=== PATIENT | female | born 1965 ===

== ENCOUNTER 2016-07-22 13:00 | Emergency (ER) | payer SELFPAY ==
[2016-07-22 13:05] VITALS: BMI 28.3
[2016-07-22] MEDS ORDERED: DiphenhydrAMINE 50 mg/ml Inj IVP STA (13:07)
[2016-07-22] MEDS ORDERED: DiphenhydrAMINE 50 mg/ml Inj ONE (13:08)
[2016-07-22 13:24] VITALS: TEMP 97.8
--- NOTE | 2016-07-22 13:32 | ED PDOC ---
Arrival/HPI - General Chief Complaint: Allergic Reaction Time Seen by Provider: 07/22/16 13:06 Historian: Patient - History of Present Illness Narrative History of Present Illness (Text): 07/22/16 13:10 Sandy Alvarez is a 50 year old female, whose past medical history includes diabetes, hypertension, and hyperlipidemia, who presents to the emergency department complaining of a reaction to Niacin prior to arrival. Patient states that shortly prior to arrival she took Niacin 500 mg for the first time and shortly thereafter (within a few minutes), developed a flushing sensation. She then developing burning and itching sensation all over body and started feeling tightness in throat with shortness of breath. Patient denies any chest pain, abdomen pain, nausea, vomiting, diarrhea, or any other complaint at this time. PMD: None Time/Duration: Prior to Arrival Symptom Onset: Gradual Symptom Course: Unchanged Severity Level: Moderate Activities at Onset: Light Context: Home Past Medical History - Provider Review Nursing Documentation Reviewed: Yes - Infectious Disease Hx of Infectious Diseases: None - Tetanus Immunization Tetanus Immunization: Unknown - Past Medical History Past Medical History: Non-Contributing - Cardiac Hx Hypertension: Yes - Pulmonary Hx Respiratory Disorders: No - Neurological Hx Neurological Disorder: No - HEENT Hx HEENT Disorder: No - Renal Hx Renal Disorder: No - Endocrine/Metabolic Hx Diabetes Mellitus Type 2: Yes - Hematological/Oncological Hx Blood Disorders: No - Integumentary Hx Dermatological Disorder: No - Musculoskeletal/Rheumatological Hx Musculoskeletal Disorders: No Hx Falls: No - Gastrointestinal Hx Gastrointestinal Disorders: No - Genitourinary/Gynecological Hx Genitourinary Disorders: No - Psychiatric Hx Depression: Yes Hx Emotional Abuse: No Hx Physical Abuse: No Hx Sexual Abuse: No Hx Substance Use: No - Surgical History Hx Hysterectomy: Yes (partial) - Anesthesia Hx Anesthesia: Yes Hx Anesthesia Reactions: No Hx Malignant Hyperthermia: No - Suicidal Assessment Feels Threatened In Home Enviroment: No Family/Social History - Physician Review Nursing Documentation Reviewed: Yes Family/Social History: No Known Family HX Smoking Status: Never Smoked Hx Alcohol Use: No Hx Substance Use: No Hx Substance Use Treatment: No Allergies/Home Meds Allergies/Adverse Reactions: Allergies Penicillins Allergy (Verified 07/22/16 13:05) SHORTNESS OF BREATH Home Medications: Home Meds Medication Instructions Recorded Confirmed Lisinopril [Zestril] 40 mg PO DAILY 03/19/16 07/22/16 Metformin HCl [Fortamet] 1,000 mg PO DAILY 03/19/16 07/22/16 Review of Systems - Physician Review All systems were reviewed & negative as marked: Yes - Review of Systems Constitutional: Other (genreralized flushin and burning sensation). absent: Fevers, Night Sweats Eyes: absent: Vision Changes ENT: absent: Hearing Changes Respiratory: absent: SOB, Cough Cardiovascular: absent: Chest Pain Gastrointestinal: absent: Abdominal Pain Genitourinary Female: absent: Urine Output Changes Musculoskeletal: absent: Back Pain, Neck Pain Skin: Pruritis, Other (skin redness) Neurological: absent: Headache, Dizziness Endocrine: absent: Polyuria Hemo/Lymphatic: absent: Easy Bleeding Psychiatric: absent: Depression Physical Exam Vital Signs Temp Pulse Resp BP Pulse Ox 07/22/16 13:01 97.8 F 81 21 153/86 H 100 Temperature: Afebrile Blood Pressure: Hypertensive Pulse: Regular Respiratory Rate: Normal Appearance: Positive for: Other (Appears to be flushed) Pain Distress: None Mental Status: Positive for: Alert and Oriented X 3 - Systems Exam Head: Present: Atraumatic, Normocephalic Pupils: Present: PERRL Conjunctiva: Present: Normal Mouth: Present: Moist Mucous Membranes Pharnyx: Present: Normal. No: ERYTHEMA, EXUDATE, TONSILS ENLARGED, Peritonsilar Swelling, Uvular Deviation, Muffled/Hoarse Voice, Strider, Soft Palate/Uvular Edema Neck: Present: Normal Range of Motion Respiratory/Chest: Present: Clear to Auscultation, Good Air Exchange. No: Respiratory Distress, Accessory Muscle Use Cardiovascular: Present: Regular Rate and Rhythm, Normal S1, S2. No: Murmurs Abdomen: Present: Normal Bowel Sounds. No: Tenderness, Distention, Peritoneal Signs Back: Present: Normal Inspection Upper Extremity: Present: Normal Inspection. No: Cyanosis, Edema Lower Extremity: Present: Normal Inspection. No: Edema Neurological: Present: GCS=15, CN II-XII Intact, Speech Normal Skin: Present: Warm, Dry, Erythematous, Other (diffuse blanching erythema; itching and pruritus). No: Normal Color, Diaphoretic, Induration Psychiatric: Present: Alert, Oriented x 3, Normal Insight, Normal Concentration Medical Decision Making ED Course and Treatment: 07/22/16 13:10 Impression: 50 year old female complaining of an allergic reaction after taking Niacin 500 mg prior to arrival. Differential Diagnosis include but are not limited to: Allergic Reaction vs flushing due to niacin Plan: -- Decadron, Benadryl, and Pepcid -- Reassess and disposition Prior Visits: Notes and results from previous visits were reviewed. Patient last seen in ED on 03/19/16 for overdose. Patient was admitted to hospitalist care for further evaluation. Progress Notes: 07/22/16 13:51 Patient reports decrease burning sensation. Patient states that she no longer has any tightness in throat, but still feels itching in neck. 07/22/16 15:14 Patient with noted reaction to niacin as allergic vs exepcted flushing. Given respiratory and throat sensation; will treat as allergic. Given decadron and benadryl and pepcid and feeling much better with full resolution of symptoms. Patient will be dc on antihistamine and told to stop niacin. Ok for d/c. - Medication Orders Current Medication Orders: Discontinued Medications Dexamethasone (Decadron Inj) 10 mg IVP STAT STA Stop: 07/22/16 13:09 Last Admin: 07/22/16 13:17 Dose: 10 mg Diphenhydramine HCl (Benadryl) 25 mg IVP STAT STA Stop: 07/22/16 13:08 Last Admin: 07/22/16 13:14 Dose: 25 mg Diphenhydramine HCl (Benadryl) Confirm Administered Dose 50 mg .ROUTE .STK-MED ONE Stop: 07/22/16 13:09 Last Admin: 07/22/16 13:14 Dose: Famotidine (Pepcid) 20 mg IVP STAT STA Stop: 07/22/16 13:08 Last Admin: 07/22/16 13:15 Dose: 20 mg Famotidine (Pepcid) Confirm Administered Dose 20 mg .ROUTE .STK-MED ONE Stop: 07/22/16 13:09 Last Admin: 07/22/16 13:14 Dose: - Scribe Statement The provider has reviewed the documentation as recorded by the Arlene Ziegler Provider Scribe Attestation: All medical record entries made by the Kaiibjocleyn were at my direction and personally dictated by me. I have reviewed the chart and agree that the record accurately reflects my personal performance of the history, physical exam, medical decision making, and the department course for this patient. I have also personally directed, reviewed, and agree with the discharge instructions and disposition. Disposition/Present on Arrival - Present on Arrival Any Indicators Present on Arrival: No History of DVT/PE: No History of Uncontrolled Diabetes: No Urinary Catheter: No History of Decub. Ulcer: No History Surgical Site Infection Following: None - Disposition Have Diagnosis and Disposition been Completed?: Yes Diagnosis: Adverse reaction to niacin Disposition: HOME/ ROUTINE Disposition Time: 15:15 Patient Plan: Discharge Condition: GOOD Additional Instructions: Avoid niacin use in the future. Take the atarax as prescribed. Follow up with your primary care doctor. Return to the emergency department if any new concerning symptoms. Prescriptions: hydrOXYzine HCl [Atarax] 25 mg PO Q6H #20 tab Referrals: Barb Mukherjee MD [Staff Provider] - Follow up with primary
[2016-07-22 15:30] VITALS: BP 129/76; PULSE 75; RESP 16; O2SAT 97
== END 2016-07-22 15:30 | disposition home or self-care (01) ==
LOC: ED 13:00
DX: T88.7XXA Unspecified adverse effect of drug or medicament, initial encounter (principal); T46.7X5A Adverse effect of peripheral vasodilators, initial encounter; Y92.89 Other specified places as the place of occurrence of the external cause
CPT/HCPCS: 96374; 96375; 99283; J1100; J1200